=== PATIENT | male | born 1985 | race Caucasian/White ===

== ENCOUNTER 2017-01-16 21:31 | Observation (INO) | payer OTHER ==
[~2017-01-16] VITALS: Ht 177.8 cm; Wt 73.0 kg
[2017-01-16] MEDS ORDERED: SODIUM CHLORIDE 0.9% 1000ML 1,000 ML IV STA ×2 (21:49)
[2017-01-16] MEDS ORDERED: LEVETIRACETAM IV 1,000 MG in DEXTROSE 5% 100ML 100 ML IV ONE (22:00)
[2017-01-16] MEDS ORDERED: MOML PO (22:01)
[2017-01-16] MEDS ORDERED: OLAN10TA11 PO (22:01)
[2017-01-16] MEDS ORDERED: DIVA500T3 PO (22:01)
[2017-01-16] MEDS ORDERED: ACET325T96 PO (22:01)
[2017-01-16] MEDS ORDERED: ALUM-30 PO (22:01)
[2017-01-16] MEDS ORDERED: CGN1 PO (22:01)
[2017-01-16] MEDS ORDERED: MIRT15TA3 PO (22:01)
[2017-01-16] MEDS ORDERED: KPP/250 PO (22:01)
[2017-01-16] MEDS ORDERED: CLON1TAB3 PO (22:01)
[2017-01-16 22:07] LABS: URINE APPEARANCE CLEAR (CLEAR); URINE BILIRUBIN NEG (NEG); URINE COLOR YELLOW; URINE NITRITE NEG (NEG); URINE PH 7.5 (4.5-7.5); UROBILINOGEN NEG (NEG); ZZUR CULT IF INDIC CLEAN CATCH NO
[2017-01-16 22:08] LABS: MANUAL MICROSCOPIC REQUIRED? NO; REVIEW REQ? NO
[2017-01-16 22:11] LABS: BASO % 0.4 %; BASO ABS # 0.03 K/uL (0-0.2); COMPLETE YES; EOS % 0.4 %; HEMATOCRIT 40.2 % (42-52); IG% 0.1 %; LYMPH % 33.7 %; MEAN CELL VOLUME 88.5 fL (80-100); MEAN CORPUSCULAR HEMOGLOBIN 31.7 pg (25-34); MEAN CORPUSCULAR HGB CONC 35.8 g/dl (32-36); MEAN PLATELET VOLUME 12.2 fL (7.4-10.4); MONO % 10.1 %; NEUT % 55.3 %; PLATELET COUNT 238 K/uL (130-400); RED BLOOD COUNT 4.54 M/uL (4.7-6.1); WHITE BLOOD COUNT 8.31 K/uL (4.8-10.8)
[2017-01-16 22:20] LABS: PARTIAL THROMBOPLASTIN RATIO 1.1; PROTHROMBIN TIME (PATIENT) 10.4 SECONDS (9.0-12.0)
[2017-01-16 22:28] LABS: CALCIUM 8.9 mg/dl (8.5-10.1); CREATININE 0.7 mg/dl (0.60-1.40); MAGNESIUM 2.2 mg/dl (1.8-2.4); POTASSIUM 3.8 mmol/L (3.5-5.1)
[2017-01-16 22:32] LABS: BENZODIAZEPINE, URINE NEG (NEG); COCAINE,URINE NEG (NEG); PHENCYCLIDINE, URINE NEG (NEG)
[2017-01-16 22:39] LABS: PHOSPHORUS 3.6 mg/dl (2.5-4.9); THYROID STIMULATING HORMONE 2.62 uIu/ml (0.300-4.500)
[2017-01-17] VITALS (8 sets, daily range): BP systolic 93–116; BP diastolic 59–73; PULSE 59–80; TEMP 36.3–36.6; O2SAT 96–98; Ht 177.8 cm; Wt 73.0 kg
[2017-01-17] MEDS ORDERED: ACETAMINOPHEN 325 MG TAB PO PRN (01:00)
[2017-01-17] MEDS ORDERED: POLYETHYLENE (MIRALAX) 17 GM PACK PO PRN (01:00)
[2017-01-17] MEDS ORDERED: ALUMINUM/MAGNESIUM/SIMETH (MAALOX MAX) 30 ML UDC PO PRN ×2 (01:00)
[2017-01-17] MEDS ORDERED: BENZTROPINE MESYLATE 1 MG TAB PO PRN (01:00)
[2017-01-17] MEDS ORDERED: MAGNESIUM HYDROXIDE SUSP 30 ML UDC PO PRN (01:00)
[2017-01-17] MEDS ORDERED: IV FLUIDS COMPLETED PRN (01:30)
--- NOTE | 2017-01-17 01:33 | History and Physical ---
History & Physical Date & Time of Service: Jan 17, 2017 at 01:02 Chief Complaint: Seizure Primary Care Physician: [facility] History of Present Illness Source: patient, caregiver 31 y/o M w/Hx Bipolar disease with depression and psychosis, seizure disorder. He is currently committed to a psychiatric [facility] under a 302 for suicidal ideation and auditory hallucinations. He had 5 short, nearly consecutive seizures this evening and was brought into the hospital for evaluation. We had been informed by staff that he was not receiving his seizure medications which would constitute Keppra and Valproic acid, however thus far his Valproic acid level is therapeutic. As we do not know if his seizures are breakthrough or related to discontinuation of meds, he will be monitored overnight. He denies additional symptoms such as SOB, CP, N/V, fevers - he may not be a reliable historian. He did not exhibit a post-ictal state on arrival. Past Medical/Surgical History 1) Bipolar disease with depression and psychosis 2) Polysubstance abuse - methamphetamine , THC , tobacco on record - last methamphetamine use 08/20 3) Hep C - VIral load not detected 2013 4) Psychogenic polydipsia Family History DM2 Seizures Social History Smoking Status: Current Every Day Smoker Allergies Coded Allergies: Amoxicillin (Verified Allergy, Unknown, Unknown, 01/16/17) Hydrocodone (Verified Allergy, Unknown, Unknown, 01/16/17) Oxycodone (Verified Allergy, Unknown, Unknown, 01/16/17) Penicillins (Verified Allergy, Unknown, Unknown, 01/16/17) Phenytoin (Verified Allergy, Unknown, Unknown, 01/16/17) Home Medications Scheduled Clonazepam (Klonopin), 1 MG PO HS Divalproex Sodium (Depakote Er), 1,000 MG PO HS Levetiractam (Keppra), 250 MG PO BID Mirtazapine (Remeron), 15 MG PO HS Olanzapine (Zyprexa), 10 MG PO DAILY Scheduled PRN Acetaminophen Tab (Tylenol), 650 MG PO Q4H PRN for Pain Alum & Mag Hydrox-Simethicone (Mylanta), 30 ML PO QID PRN for Gastric Distress Benztropine Mesylate (Cogentin), 0.5 MG PO BID PRN for EPS Magnesium Hydroxide (Milk Of Magnesia), 30 ML PO DAILY PRN for Constipation Review of Systems Constitutional: No chills, No fever, No sweats Eyes: No eye pain, No worsening of vision ENT: No hearing loss, No nasal symptoms, No unusual epistaxis Respiratory: No cough, No sputum, No wheezing Cardiovascular: No PND, No chest pain, No orthopnea Abdomen: No nausea, No pain, No vomiting Musculoskeletal: No joint pain, No muscle pain Genitourinary - Male: No dysuria, No hematuria, No urinary frequency, No urinary urgency Neurologic: + problem reported (Seizure x 5 - witnessed - ~1 min per) Psychiatric: No depression symptoms Endocrine: No excessive thirst, No fatigue Hematologic / Lymphatic: No abnormal bleeding/bruising Integumentary: No rash Allergic / Immunologic: No environmental allergies Physical Exam Vital Signs Date Time Temp Pulse Resp B/P Pulse Ox O2 Delivery O2 Flow Rate FiO2 01/16/17 23:34 69 20 101/72 97 Room Air 01/16/17 21:59 79 01/16/17 21:43 98 Room Air 01/16/17 21:38 36.8 78 20 107/70 96 Room Air General Appearance: WD/WN, no apparent distress Head: normocephalic, atraumatic Eyes: normal inspection, PERRL, EOMI ENT: hearing grossly normal, + pertinent finding (poor dentintion) Neck: supple, no adenopathy, thyroid normal, no JVD Respiratory/Chest: chest non-tender, lungs clear, normal breath sounds Cardiovascular: regular rate, rhythm, no edema, no gallop, no JVD, no murmur, normal peripheral pulses Abdomen/GI: normal bowel sounds, non tender, soft Back: normal inspection, no CVA tenderness, no muscle spasm, normal range of motion Extremities/Musculoskelatal: normal inspection, no calf tenderness, normal capillary refill, no pedal edema, normal range of motion Neurologic/Psych: oil gauger II-XII nml as tested, no motor/sensory deficits, alert, normal mood/affect, normal reflexes, oriented x 3 Skin: warm/dry, no rash, + pertinent finding (several poorly rendered tattoos) Lymphatic: no adenopathy Diagnostics Laboratory Results Results Past 24 Hours Test 01/16/17 21:48 Range/Units White Blood Count 8.31 4.8-10.8 K/uL Red Blood Count 4.54 4.7-6.1 M/uL Hemoglobin 14.4 14.0-18.0 g/dL Hematocrit 40.2 42-52 % Mean Corpuscular Volume 88.5 80-100 fL Mean Corpuscular Hemoglobin 31.7 25-34 pg Mean Corpuscular Hemoglobin Concent 35.8 32-36 g/dl Platelet Count 238 130-400 K/uL Mean Platelet Volume 12.2 7.4-10.4 fL Neutrophils (%) (Auto) 55.3 % Lymphocytes (%) (Auto) 33.7 % Monocytes (%) (Auto) 10.1 % Eosinophils (%) (Auto) 0.4 % Basophils (%) (Auto) 0.4 % Neutrophils # (Auto) 4.60 1.4-6.5 K/uL Lymphocytes # (Auto) 2.80 1.2-3.4 K/uL Monocytes # (Auto) 0.84 0.11-0.59 K/uL Eosinophils # (Auto) 0.03 0-0.5 K/uL Basophils # (Auto) 0.03 0-0.2 K/uL RDW Standard Deviation 46.8 36.4-46.3 fL RDW Coefficient of Variation 14.4 11.5-14.5 % Immature Granulocyte % (Auto) 0.1 % Immature Granulocyte # (Auto) 0.01 0.00-0.02 K/uL Prothrombin Time 10.4 9.0-12.0 SECONDS Prothromb Time International Ratio 1.0 0.9-1.1 Activated Partial Thromboplast Time 28.7 21.0-31.0 SECONDS Partial Thromboplastin Ratio 1.1 Urine Color YELLOW Urine Appearance CLEAR CLEAR Urine pH 7.5 4.5-7.5 Urine Specific [place] 1.000 1.000-1.030 Urine Protein NEG NEG Urine Glucose (UA) NEG NEG Urine Ketones NEG NEG Urine Occult Blood NEG NEG Urine Nitrite NEG NEG Urine Bilirubin NEG NEG Urine Urobilinogen NEG NEG Urine Leukocyte Esterase NEG NEG Sodium Level 141 136-145 mmol/L Potassium Level 3.8 3.5-5.1 mmol/L Chloride Level 107 98-107 mmol/L Carbon Dioxide Level 26 21-32 mmol/L Anion Gap 8.0 3-11 mmol/L Blood Urea Nitrogen 12 7-18 mg/dl Creatinine 0.70 0.60-1.40 mg/dl Est Creatinine Clear Calc Drug Dose 143.0 ml/min Estimated GFR () 145.7 Estimated GFR (Non- 125.8 BUN/Creatinine Ratio 17.0 10-20 Random Glucose 86 70-99 mg/dl Calcium Level 8.9 8.5-10.1 mg/dl Phosphorus Level 3.6 2.5-4.9 mg/dl Magnesium Level 2.2 1.8-2.4 mg/dl Thyroid Stimulating Hormone (TSH) 2.620 0.300-4.500 uIu/ml Urine Opiates Screen NEG NEG Urine Methadone, Qualitative NEG NEG Urine Barbiturates NEG NEG Valproic Acid (Depakene) Level 91 50-100 mcg/ml Urine Phencyclidine (PCP) Level NEG NEG Ur Amphetamine/Methamphetamine NEG NEG MDMA (Ecstasy) Screen NEG NEG Urine Benzodiazepines Screen NEG NEG Urine Cocaine Metabolite NEG NEG Urine Marijuana (THC) NEG NEG Impression Assessment and Plan 31 y/o M w/Hx Bipolar disease with depression and psychosis, seizure disorder. He is currently committed to a psychiatric [facility] under a 302 for suicidal ideation and auditory hallucinations. He had 5 short, nearly consecutive seizures this evening and was brought into the hospital for evaluation. We had been informed by staff that he was not receiving his seizure medications which would constitute Keppra and Valproic acid, however thus far his Valproic acid level is therapeutic. As we do not know if his seizures are breakthrough or related to discontinuation of meds, he will be monitored overnight. He denies additional symptoms such as SOB, CP, N/V, fevers - he may not be a reliable historian. He did not exhibit a post-ictal state on arrival. 1) Seizures - we are pending a Keppra level. Valproic level is therapeutic. Pt was Keppra loaded in ER. If the Keppra level is low this can be considered diagnostic, otherwise we would consult neurology for breakthrough seizures with appropriate compliance. It is noted that he may be on new psychiatric medications which can sometimes lower the seizure threshold in addition to disturbing his sleep schedule which may also predispose him to breakthroughs. 2) Bipolar / psychosis / suicidal ideation - Pt will be placed on one to one and we will continue his meds including Zyprexa and Remeron as prescribed. 3) Hx psychogenic polydipsia - will restrict fluid if needed - electrolytes WNL presently. Full code - avoid anticoagulation due to seizures Total time for this admit including review of labs, meds, EKG - discussion with ER attending and pt/log washer - 32 min Level of Care Telemetry Resuscitation Status FULL RESUSCITATION VTE Prophylaxis VTE Risk Assessment Done? Y/N: Yes Risk Level: Low Given or contraindicated: Contraindicated
--- NOTE | 2017-01-17 01:46 | EMERGENCY ROOM VISIT NOTE ---
History First contact with patient: 21:33 Chief Complaint: SEIZURE Stated Complaint: SEIZURE Nursing Triage Summary: Vanessa from [facility]. History of seizurs. Reported by EMS to have had multiple seizures throughout the evening at [facility]. Possibly a change in medications or patient has not been taking medications for his seizures. He was given depakote at some point this evening. Patient awake and oriented. Minor headache. Last seizure before today was 1 year ago. History of Present Illness The patient is a 31 year old male who presents to the Emergency Room with complaints of seizures today who is currently at the [facility] for suicidal ideations and hallucinations under a 302 who is from [place]. Patient states he normally takes Keppra 1000 mg twice a day and Depakote 1000 mg daily at bedtime. Patient states he has not been receiving his antibiotic medication since his been at the [facility]. He has been there for 2 days. He was sent there under a 302 for suicidal ideations. Patient denies alcohol use, drug use , chest pain, dyspnea, fever, chills, recent illness, Don pain, headache or any other medical complaints. Patient states he had 5 or 6 seizures today. Pony did give him a total of 500 Depakote tonight. I did speak to the nurse at the [facility] and states that there were no orders by the doctor to give the Depakote or Keppra so he did not receive anything for the past 2-3 days. The nurse states that he had 4 seizures in front of her that were brief in nature that was with generalized shaking and patient was post ictal and then 2 longer seizures. He was then sent here. Review of Systems See HPI for pertinent positives & negatives. A total of 10 systems reviewed and were otherwise negative. Past Medical/Surgical History Medical Problems: (1) Seizures Social History Smoking Status: Current Every Day Smoker Alcohol Use: none Drug Use: none Current/Historical Medications Scheduled Clonazepam (Klonopin), 1 MG PO HS Divalproex Sodium (Depakote Er), 1,000 MG PO HS Levetiractam (Keppra), 250 MG PO BID Mirtazapine (Remeron), 15 MG PO HS Olanzapine (Zyprexa), 10 MG PO DAILY Scheduled PRN Acetaminophen Tab (Tylenol), 650 MG PO Q4H PRN for Pain Alum & Mag Hydrox-Simethicone (Mylanta), 30 ML PO QID PRN for Gastric Distress Benztropine Mesylate (Cogentin), 0.5 MG PO BID PRN for EPS Magnesium Hydroxide (Milk Of Magnesia), 30 ML PO DAILY PRN for Constipation Allergies Coded Allergies: Amoxicillin (Verified Allergy, Unknown, Unknown, 01/16/17) Hydrocodone (Verified Allergy, Unknown, Unknown, 01/16/17) Oxycodone (Verified Allergy, Unknown, Unknown, 01/16/17) Penicillins (Verified Allergy, Unknown, Unknown, 01/16/17) Phenytoin (Verified Allergy, Unknown, Unknown, 01/16/17) Physical Exam Vital Signs Date Time Temp Pulse Resp B/P Pulse Ox O2 Delivery O2 Flow Rate FiO2 01/17/17 01:24 73 20 115/67 95 01/16/17 23:34 69 20 101/72 97 Room Air 01/16/17 21:59 79 01/16/17 21:43 98 Room Air 01/16/17 21:38 36.8 78 20 107/70 96 Room Air Pain Rating (0-10): 0 Physical Exam VITALS: Vitals are noted on the nurse's note and reviewed by myself. Vital signs stable. GENERAL: Pleasant male, in no acute distress, nondiaphoretic, well-developed well-nourished. SKIN: The skin was without rashes, erythema, edema, or bruising. There is no tenting of the skin. Capillary reflex less than 2 seconds. HEAD: Normocephalic atraumatic. EARS: External auditory canals clear, tympanic membranes pearly alvarez without erythema or effusion bilaterally. EYES: Pupils equal round and reactive to light and accommodation. Conjunctivae without injection, sclerae without icterus. Extraocular movements intact. NOSE: Patent, turbinates without inflammation or discharge. No sinus tenderness. MOUTH: Mucous membranes moist. Pharynx without erythema or exudate. Uvula midline. Airway patent. Tongue does not deviate. NECK: Supple without nuchal rigidity. No lymphadenopathy. No thyromegaly. Cervical spine is nontender. No JVD. HEART: Regular rate and rhythm without murmurs gallops or rubs. LUNGS: Clear to auscultation bilaterally without wheezes, rales or rhonchi. No dullness to percussion. No retractions or accessory muscle use. ABDOMEN: Positive bowel sounds x 4. Normal tympanic percussion. Soft, nontender, without masses or organomegaly. Mullins sign negative. No guarding or rebound tenderness. MUSCULOSKELETAL: No muscle atrophy, erythema, or edema noted. NEURO: Patient was alert and oriented to person place and time. Normal sensation to light and sharp touch. No focal neurological deficits. Cranial nerves II through XII grossly intact. No pronator drift. Cerebellar exam intact. Medical Decision & Procedures Laboratory Results 01/16/17 21:48 Red Blood Count 4.54, Mean Corpuscular Volume 88.5, Mean Corpuscular Hemoglobin 31.7, Mean Corpuscular Hemoglobin Concent 35.8, Mean Platelet Volume 12.2, Neutrophils (%) (Auto) 55.3, Lymphocytes (%) (Auto) 33.7, Monocytes (%) (Auto) 10.1, Eosinophils (%) (Auto) 0.4, Basophils (%) (Auto) 0.4, Neutrophils # (Auto ) 4.60, Lymphocytes # (Auto) 2.80, Monocytes # (Auto) 0.84, Eosinophils # (Auto ) 0.03, Basophils # (Auto) 0.03 01/16/17 21:48 Test 01/16/17 21:48 White Blood Count 8.31 K/uL (4.8-10.8) Red Blood Count 4.54 M/uL (4.7-6.1) Hemoglobin 14.4 g/dL (14.0-18.0) Hematocrit 40.2 % (42-52) Mean Corpuscular Volume 88.5 fL (80-100) Mean Corpuscular Hemoglobin 31.7 pg (25-34) Mean Corpuscular Hemoglobin Concent 35.8 g/dl (32-36) Platelet Count 238 K/uL (130-400) Mean Platelet Volume 12.2 fL (7.4-10.4) Neutrophils (%) (Auto) 55.3 % Lymphocytes (%) (Auto) 33.7 % Monocytes (%) (Auto) 10.1 % Eosinophils (%) (Auto) 0.4 % Basophils (%) (Auto) 0.4 % Neutrophils # (Auto) 4.60 K/uL (1.4-6.5) Lymphocytes # (Auto) 2.80 K/uL (1.2-3.4) Monocytes # (Auto) 0.84 K/uL (0.11-0.59) Eosinophils # (Auto) 0.03 K/uL (0-0.5) Basophils # (Auto) 0.03 K/uL (0-0.2) RDW Standard Deviation 46.8 fL (36.4-46.3) RDW Coefficient of Variation 14.4 % (11.5-14.5) Immature Granulocyte % (Auto) 0.1 % Immature Granulocyte # (Auto) 0.01 K/uL (0.00-0.02) Prothrombin Time 10.4 SECONDS (9.0-12.0) Prothromb Time International Ratio 1.0 (0.9-1.1) Activated Partial Thromboplast Time 28.7 SECONDS (21.0-31.0) Partial Thromboplastin Ratio 1.1 Urine Color YELLOW Urine Appearance CLEAR (CLEAR) Urine pH 7.5 (4.5-7.5) Urine Specific [place] 1.000 (1.000-1.030) Urine Protein NEG (NEG) Urine Glucose (UA) NEG (NEG) Urine Ketones NEG (NEG) Urine Occult Blood NEG (NEG) Urine Nitrite NEG (NEG) Urine Bilirubin NEG (NEG) Urine Urobilinogen NEG (NEG) Urine Leukocyte Esterase NEG (NEG) Anion Gap 8.0 mmol/L (3-11) Est Creatinine Clear Calc Drug Dose 143.0 ml/min Estimated GFR () 145.7 Estimated GFR (Non- 125.8 BUN/Creatinine Ratio 17.0 (10-20) Calcium Level 8.9 mg/dl (8.5-10.1) Phosphorus Level 3.6 mg/dl (2.5-4.9) Magnesium Level 2.2 mg/dl (1.8-2.4) Thyroid Stimulating Hormone (TSH) 2.620 uIu/ml (0.300-4.500) Urine Opiates Screen NEG (NEG) Urine Methadone, Qualitative NEG (NEG) Urine Barbiturates NEG (NEG) Valproic Acid (Depakene) Level 91 mcg/ml (50-100) Urine Phencyclidine (PCP) Level NEG (NEG) Ur Amphetamine/Methamphetamine NEG (NEG) MDMA (Ecstasy) Screen NEG (NEG) Urine Benzodiazepines Screen NEG (NEG) Urine Cocaine Metabolite NEG (NEG) Urine Marijuana (THC) NEG (NEG) Medications Administered Medications (Trade) Dose Ordered Sig/Santa Route Start Time Stop Time Status Last Admin Dose Admin Levetiracetam 1000 mg/Dextrose 110 ml @ 440 mls/hr ONE ONCE IV 01/16/17 22:00 01/16/17 22:14 DC 01/16/17 22:30 440 MLS/HR Sodium Chloride 1,000 ml @ 999 mls/hr Q1H1M STAT IV 01/16/17 21:49 01/16/17 22:49 DC 01/16/17 21:49 999 MLS/HR Sodium Chloride (Nss 1000ml) 1,000 ml @ 125 mls/hr Q8H STAT IV 01/16/17 21:49 01/17/17 05:48 01/16/17 23:51 125 MLS/HR ED Course Prior records/ancillary studies reviewed. Patient placed in seizure precautions immediately upon arrival. Nursing notes reviewed. Additional history obtained from EMS The patient's history was concerning for a possible seizure. Differential diagnosis: Etiologies such as infection, hypoglycemia, electrolyte abnormalities, cardiac sources, intracerebral event, trauma, toxicologic, neurologic, as well as others were entertained. Physical examination: As above. No signs of trauma. ER treatment provided: Keppra On reassessment the patient felt better. Diagnostics interpretation by me: ECG: Normal sinus, normal intervals, no acute ST or T wave changes. Impression normal sinus rhythm interpreted by myself The labs revealed no worrisome leukocytosis or electrolyte abnormality. Normal Depakote level Consultation: A consultation was placed with the neurologist, Dr. Mcpherson. The case was discussed and diagnostics were reviewed. She recommends Keppra IV and admission. She states since the Depakote level is within limits she does not recommend giving anymore at this time but does recommend resuming his normal regimen. I spoke to the hospitalist, Dr. Russo and will evaluate the patient for possible admission. Please see his dictation for further information regarding the treatment plan. The patient has a history of seizures and experienced another episode. Patient most likely experienced a seizure due to lack of being medicated. He has had possibly 5-6 seizures today and will be evaluated by medicine for possible admission. No concerning physical findings or historical points were noted. Advanced diagnostics were deemed unnecessary. By the evaluation outlined above emergent etiologies such as infection, hypoglycemia, electrolyte abnormalities, cardiac sources, intracerebral event, toxicologic, neurologic,as well as others were deemed relatively unlikely. The patient was counseled not to drive until cleared in follow-up and seizure precautions given. I gave my usual and customary discussion regarding these issues. The pt informed about the findings as listed above. All questions were answered and pleased with the treatment. Case reviewed with my attending Medical Decision As above Impression Primary Impression: Seizures Departure Information Dispostion Being Evaluated By Hospitalist Condition FAIR Referrals [facility] (PCP) Patient Instructions My [facility]
[2017-01-17] MEDS ORDERED: D5NSS + 20MEQ KCL 1,000 ML IV SCH (02:30)
[2017-01-17] MEDS ORDERED: OLANZAPINE 10 MG TAB PO SCH (09:00)
[2017-01-17] MEDS ORDERED: LEVETIRACETAM 250 MG TAB PO SCH (09:00)
--- NOTE | 2017-01-17 12:21 | Hospitalist Progress Note ---
Hospitalist Progress Note Date of Service Jan 17, 2017. Subjective Pt evaluation today including: conversation w/ patient, conversation w/ family , physical exam, chart review, lab review, conversation w/ sap portal consultant, review of inpatient medication list Patient currently has no complaints. Denies any headache. Denies any recent illnesses such as fever, sore throat, cough, nausea or vomiting. He is currently on a 302 from the [facility]. He reports not feeling safe going back to the [facility] as he experienced 6 seizures before they called EMS. He also says that he is not getting his typical dose of Keppra and Depakote. Additional Comments: 6 system review negative. Please see pertinent positives in the history of present illness section. Objective Vital Signs Date Time Temp Pulse Resp B/P Pulse Ox O2 Delivery O2 Flow Rate FiO2 01/17/17 11:40 Room Air 01/17/17 11:01 36.5 64 16 93/59 97 Room Air 01/17/17 07:45 Room Air 01/17/17 07:03 36.3 61 18 97/60 96 Room Air 01/17/17 04:00 98 Room Air 01/17/17 04:00 36.4 59 18 96/59 96 Room Air 01/17/17 02:42 36.6 80 18 116/73 98 Room Air 01/17/17 01:45 36.6 80 18 116/73 98 01/17/17 01:24 73 20 115/67 95 01/16/17 23:34 69 20 101/72 97 Room Air 01/16/17 21:59 79 01/16/17 21:43 98 Room Air 01/16/17 21:38 36.8 78 20 107/70 96 Room Air Physical Exam General Appearance: no apparent distress Eyes: EOMI, + pertinent finding (pupils dilated) Neck: no JVD Respiratory/Chest: lungs clear Cardiovascular: regular rate, rhythm Abdomen: normal bowel sounds, non tender, soft Extremities: non-tender, no pedal edema Neurologic/Psychiatric: no motor/sensory deficits, oriented x 3, + pertinent finding (species occasionally slurred) Skin: warm/dry Laboratory Results Last 24 Hours Test 01/16/17 21:48 White Blood Count 8.31 K/uL Red Blood Count 4.54 M/uL Hemoglobin 14.4 g/dL Hematocrit 40.2 % Mean Corpuscular Volume 88.5 fL Mean Corpuscular Hemoglobin 31.7 pg Mean Corpuscular Hemoglobin Concent 35.8 g/dl Platelet Count 238 K/uL Mean Platelet Volume 12.2 fL Neutrophils (%) (Auto) 55.3 % Lymphocytes (%) (Auto) 33.7 % Monocytes (%) (Auto) 10.1 % Eosinophils (%) (Auto) 0.4 % Basophils (%) (Auto) 0.4 % Neutrophils # (Auto) 4.60 K/uL Lymphocytes # (Auto) 2.80 K/uL Monocytes # (Auto) 0.84 K/uL Eosinophils # (Auto) 0.03 K/uL Basophils # (Auto) 0.03 K/uL RDW Standard Deviation 46.8 fL RDW Coefficient of Variation 14.4 % Immature Granulocyte % (Auto) 0.1 % Immature Granulocyte # (Auto) 0.01 K/uL Prothrombin Time 10.4 SECONDS Prothromb Time International Ratio 1.0 Activated Partial Thromboplast Time 28.7 SECONDS Partial Thromboplastin Ratio 1.1 Urine Color YELLOW Urine Appearance CLEAR Urine pH 7.5 Urine Specific [place] 1.000 Urine Protein NEG Urine Glucose (UA) NEG Urine Ketones NEG Urine Occult Blood NEG Urine Nitrite NEG Urine Bilirubin NEG Urine Urobilinogen NEG Urine Leukocyte Esterase NEG Sodium Level 141 mmol/L Potassium Level 3.8 mmol/L Chloride Level 107 mmol/L Carbon Dioxide Level 26 mmol/L Anion Gap 8.0 mmol/L Blood Urea Nitrogen 12 mg/dl Creatinine 0.70 mg/dl Est Creatinine Clear Calc Drug Dose 143.0 ml/min Estimated GFR () 145.7 Estimated GFR (Non- 125.8 BUN/Creatinine Ratio 17.0 Random Glucose 86 mg/dl Calcium Level 8.9 mg/dl Phosphorus Level 3.6 mg/dl Magnesium Level 2.2 mg/dl Thyroid Stimulating Hormone (TSH) 2.620 uIu/ml Urine Opiates Screen NEG Urine Methadone, Qualitative NEG Urine Barbiturates NEG Valproic Acid (Depakene) Level 91 mcg/ml Urine Phencyclidine (PCP) Level NEG Ur Amphetamine/Methamphetamine NEG MDMA (Ecstasy) Screen NEG Urine Benzodiazepines Screen NEG Urine Cocaine Metabolite NEG Urine Marijuana (THC) NEG Assessment and Plan 31-year-old male with a history of suicidal ideation presents from the [facility] on a 302 for breakthrough seizures. No further seizure activity since admission Breakthrough seizure-Depakote level therapeutic -We will try to confirm the patient's dose of Keppra and Depakote. At home, he reports taking Depakote ER 1000 mg twice daily and Keppra 1000 g twice daily -According to [facility] records, the patient is getting Depakote ER 1000 mg at night and Keppra 250 mg BID -If I'm unable to confirm his home dose, we will increase Keppra to 500 mg BID per recommendations of neurology Bipolar disorder -Continue Remeron 15 mg at night, Zyprexa 10 mg daily, Congentin 0.5 mg BID prn Polydipsia -Electrolytes stable DVT prophylaxis -Lovenox 40 mg subQ daily -TEDS, SCDs CODE STATUS -LEVEL I FULL CODE DISPO -Likely DC back to [facility] on 302
--- NOTE | 2017-01-17 13:12 | Psychiatric Consultation ---
Consultation Identifying Data 31 y/o male from [place] who has a history of bipolar disorder and is admitted to the [facility] on an involuntary 302 commitment with SI and command AH. He was transferred to [facility] for treatment of seizures. Psychiatry was consulted for "SI, 302 from the [facility]." Chief Complaint "I'm depressed, miss my family". History of Present Illness Information is obtained from the patient and a review of his [facility] records as well as records from the [facility]. According to the paper records on his chart, he presented to an outside hospital emergency room on 01/15/2017 endorsing command auditory hallucinations telling him to kill himself and suicidal thoughts with a planned overdose on his medications. He reported a history of bipolar disorder, and stated that he was hearing voices telling him "no one cares about you, you might as well , go kill yourself." He then demanded to leave the emergency room, became agitated, and threatened staff, so was placed on a 302 involuntary commitment. He received Haldol 10 mg and Ativan 2 mg IM in the emergency room. He was transferred to the [facility]. There is some discrepancies in his medication list, as the outside hospital emergency room lists Keppra 1000 mg twice a day, but the [facility] lists Keppra 250 mg twice a day. The rest of his medication list appears the same, including Depakote 1000 mg daily at bedtime, olanzapine 10 mg daily, and mirtazapine 15 mg daily at bedtime. He appears to have been taking his medications at the [facility]. On my assessment, he states that he doesn't want to return to the [facility] because "it is too far away from home," and also complains that he doesn't think he needed to be admitted there in the first place. He is upset that he was involuntarily committed, saying that he signed himself in, but then was committed. He continues to endorse suicidal thoughts, but denies intent to harm himself in the hospital. Although he states that he doesn't want to return to the [facility], he was informed that he is on an involuntary commitment, so we'll need to return there and complete his treatment once he is medically stabilized. He expressed understanding. Past Psychiatric History Current OP Treatment: psychiatrist ([facility] in [place]) Prior Psych Hospitalizations: other (in 2003) (1) Bipolar disorder Admitted to the [facility] on a 302 commitment as of 01/15/17. History of suicide attempt by hanging in 2002 or 2003. History of inpatient treatment in 2003. Previous medication trials include but are not limited to risperidone, lorazepam , trazodone, and quetiapine. Per outside hospital records, diagnosis is bipolar disorder, but patient states he is also diagnosed with depression, psychosis, and schizoaffective disorder. Past Medical/Surgical History Problem List: (1) Seizures Allergies Allergies: Coded Allergies: Amoxicillin (Verified Allergy, Unknown, Unknown, 01/16/17) Hydrocodone (Verified Allergy, Unknown, Unknown, 01/16/17) Oxycodone (Verified Allergy, Unknown, Unknown, 01/16/17) Penicillins (Verified Allergy, Unknown, Unknown, 01/16/17) Phenytoin (Verified Allergy, Unknown, Unknown, 01/16/17) Home Medications Scheduled Clonazepam (Klonopin), 1 MG PO HS Divalproex Sodium (Depakote Er), 1,000 MG PO HS Levetiractam (Keppra), 250 MG PO BID Mirtazapine (Remeron), 15 MG PO HS Olanzapine (Zyprexa), 10 MG PO DAILY Scheduled PRN Acetaminophen Tab (Tylenol), 650 MG PO Q4H PRN for Pain Alum & Mag Hydrox-Simethicone (Mylanta), 30 ML PO QID PRN for Gastric Distress Benztropine Mesylate (Cogentin), 0.5 MG PO BID PRN for EPS Magnesium Hydroxide (Milk Of Magnesia), 30 ML PO DAILY PRN for Constipation Family History Mother with anxiety. Alcohol Use Alcohol Use In Past 12 Months: No Substance History meth - last use 08/2013 THC - daily Personal History Additional Comments: Patient is from [place], and his mother, sister, and extended family live in [place]. He moved to [place] to the [facility] to live with his father and get clean. He is unemployed on disability. He has a 12th grade education. He is in the process of . He has multiple arrests in the past, including for grand theft auto, and is on probation in [place] for domestic violence charges. Review of Systems 10 systems were reviewed and are negative except as stated above. Examination Vital Signs Vital Signs Past 12 Hours Date Time Temp Pulse Resp B/P Pulse Ox O2 Delivery O2 Flow Rate FiO2 01/17/17 11:40 Room Air 01/17/17 11:01 36.5 64 16 93/59 97 Room Air 01/17/17 07:45 Room Air 01/17/17 07:03 36.3 61 18 97/60 96 Room Air 01/17/17 04:00 98 Room Air 01/17/17 04:00 36.4 59 18 96/59 96 Room Air 01/17/17 02:42 36.6 80 18 116/73 98 Room Air 01/17/17 01:45 36.6 80 18 116/73 98 01/17/17 01:24 73 20 115/67 95 Laboratory Results Last 24 Hours Test 01/16/17 21:48 White Blood Count 8.31 K/uL Red Blood Count 4.54 M/uL Hemoglobin 14.4 g/dL Hematocrit 40.2 % Mean Corpuscular Volume 88.5 fL Mean Corpuscular Hemoglobin 31.7 pg Mean Corpuscular Hemoglobin Concent 35.8 g/dl Platelet Count 238 K/uL Mean Platelet Volume 12.2 fL Neutrophils (%) (Auto) 55.3 % Lymphocytes (%) (Auto) 33.7 % Monocytes (%) (Auto) 10.1 % Eosinophils (%) (Auto) 0.4 % Basophils (%) (Auto) 0.4 % Neutrophils # (Auto) 4.60 K/uL Lymphocytes # (Auto) 2.80 K/uL Monocytes # (Auto) 0.84 K/uL Eosinophils # (Auto) 0.03 K/uL Basophils # (Auto) 0.03 K/uL RDW Standard Deviation 46.8 fL RDW Coefficient of Variation 14.4 % Immature Granulocyte % (Auto) 0.1 % Immature Granulocyte # (Auto) 0.01 K/uL Prothrombin Time 10.4 SECONDS Prothromb Time International Ratio 1.0 Activated Partial Thromboplast Time 28.7 SECONDS Partial Thromboplastin Ratio 1.1 Urine Color YELLOW Urine Appearance CLEAR Urine pH 7.5 Urine Specific [place] 1.000 Urine Protein NEG Urine Glucose (UA) NEG Urine Ketones NEG Urine Occult Blood NEG Urine Nitrite NEG Urine Bilirubin NEG Urine Urobilinogen NEG Urine Leukocyte Esterase NEG Sodium Level 141 mmol/L Potassium Level 3.8 mmol/L Chloride Level 107 mmol/L Carbon Dioxide Level 26 mmol/L Anion Gap 8.0 mmol/L Blood Urea Nitrogen 12 mg/dl Creatinine 0.70 mg/dl Est Creatinine Clear Calc Drug Dose 143.0 ml/min Estimated GFR () 145.7 Estimated GFR (Non- 125.8 BUN/Creatinine Ratio 17.0 Random Glucose 86 mg/dl Calcium Level 8.9 mg/dl Phosphorus Level 3.6 mg/dl Magnesium Level 2.2 mg/dl Thyroid Stimulating Hormone (TSH) 2.620 uIu/ml Urine Opiates Screen NEG Urine Methadone, Qualitative NEG Urine Barbiturates NEG Valproic Acid (Depakene) Level 91 mcg/ml Urine Phencyclidine (PCP) Level NEG Ur Amphetamine/Methamphetamine NEG MDMA (Ecstasy) Screen NEG Urine Benzodiazepines Screen NEG Urine Cocaine Metabolite NEG Urine Marijuana (THC) NEG Mental Examination During interview pt is: alert and oriented, cooperative Appearance: other (wearing a hospital gown. Multiple large tattoos on bilateral upper extremities. Poor dentition) Eye contact is: fair Motor behavior is: no abnormal motor movements Speech: normal in rate, rhythm & volume Affect: blunted Mood is: other ("okay, I don't want to go back there") Thought process: goal directed Thought content: reality based without delusions Suicidal thought are: denied ("yeah I said I was depressed, but they misunderstood") Homicidal thoughts are: denied Hallucinations: denies auditory Intelligence estimated to be: consistent with level of education Insight: impaired Judgement: impaired Impression / Recommendations Impression 31-year-old white male currently living in [place] after relocating from [place], with history of bipolar disorder per his report as well as substance abuse and legal problems, who presents from the [facility] for treatment of seizures after being committed there involuntarily for command auditory hallucinations and suicidality. Recommendations (1) Bipolar disorder -Continue olanzapine 10 mg daily and mirtazapine 15 mg daily at bedtime. -Is on a 302 involuntary commitment to the [facility], and will need to return there once medically stabilized. -Reviewed the case with ALTAGRACIA Amaya, and recommend that case management coordinate with the [facility] regarding patient's probable medical clearance and transfer back to their facility. She is attempting to contact his PCP to clarify correct doses of seizure medications.
[2017-01-17] MEDS ORDERED: NICOTINE 21 MG/24 HR TDSY TD SCH (15:30)
--- NOTE | 2017-01-17 16:58 | DIAGNOSTIC IMAGING REPORT ---
CT OF THE HEAD WITHOUT CONTRAST CLINICAL HISTORY: Evaluate for intracranial pathology. COMPARISON STUDY: No previous studies for comparison. CT DOSE: 537.48 mGy.cm TECHNIQUE: Helical axial images of the head were obtained without IV contrast. Automated exposure control was utilized for the study. FINDINGS: No acute intracranial hemorrhage, midline shift or mass effect is present. Ventricular system is normal. Basilar cisterns are patent. There are no extra axial collections. Jaun-white differentiation is maintained. There are no findings to suggest acute dural sinus thrombosis or acute territorial infarct. There are no calvarial abnormalities. Visualized portions of the sinuses and mastoid air cells are clear. IMPRESSION: No acute intracranial findings. Electronically signed by: Víctor Cooper M.D. 01/17/2017 4:56 PM Dictated Date/Time: 01/17/2017 4:55 PM
[2017-01-17] MEDS ORDERED: NCDT21 TD (17:05)
[2017-01-17] MEDS ORDERED: CLON1TAB3 PO (17:05)
[2017-01-17] MEDS ORDERED: LEVE500T PO (17:05)
--- NOTE | 2017-01-17 17:09 | Discharge Instructions ---
Discharge Instructions Date of Service Jan 17, 2017. Admission Reason for Admission: Seizures Discharge Discharge Diagnosis / Problem: seizure disorder Discharge Goals Goal(s): Learn about illness, Diagnostic testing, Therapeutic intervention Activity Recommendations Activity Limitations: resume your previous activity . Instructions / Follow-Up Instructions / Follow-Up From Dr. Mejía - Following admission you had no further seizures. All of your blood tests including your depakote level were normal. A keppra blood level was sent and is pending at time of discharge. CAT scan of the brain was also normal. We confirmed your doses of your seizure medications with your pharmacy back home in [place], [place]. You will continue on depakote 1000mg at bedtime and keppra 500mg twice daily. No dose adjustments/increases are recommended at this time. We suspect you had seizures because of sleep deprivation (no sleep in 4 days) as well as either getting lower doses of your keppra and/or missing 1 or more doses of your keppra. You will need follow-up with your neurologist back home in [place] upon return there. Current Hospital Diet Patient's current hospital diet: Regular Diet Discharge Diet Recommended Diet: Regular Diet Procedures Procedures Performed: CAT scan of the brain - NORMAL. All blood work was also normal including your depakote level. Pending Studies Studies pending at discharge: yes List of pending studies: Keppra blood level Medical Emergencies . Who to Call and When: Medical Emergencies: If at any time you feel your situation is an emergency, please call 911 immediately. . Non-Emergent Contact Non-Emergency issues call your: Specialist (psychiatrist) Call Non-Emergent contact if: temperature is above 100.5, you have any medication questions . . "Provider Documentation" section prepared by Ismael Mejía. VTE Core Measure Inpt VTE Proph given/why not?: SCD's, Contraindicated
--- NOTE | 2017-01-17 19:38 | Discharge Summary ---
Discharge Summary Date of Service Jan 17, 2017. Discharge Summary Admission Date: Jan 17, 2017 at 00:53 Discharge Date: Jan 17, 2017 Discharge Disposition: Acute care [facility] ([place]) Principal Diagnosis: seizures in setting of established seizure disorder Problems/Secondary Diagnoses: 1. bipolar disorder 2. history of schizoaffective disorder 3. prior history of suicide attempt 4. h/o psychogenic polydipsia 5. h/o polysubstance abuse 6. tobacco dependence Procedures: CT brain: normal. No stroke, mass, ICH. Consultations: psychiatry - Summer Grey MD Medication Reconciliation New Medications: Nicotine (Nicotine) 1 Patch Tdsy 1 PATCH TD QAM, #30 0 Refills 21mg patch; discontinue if smoking tobacco products. Changed Medications: Levetiractam (Levetiracetam) 500 Mg Tab 500 MG PO BID, #60 1 Refill (Changed from: Levetiractam (Keppra) 250 Mg Tab 250 Mg PO BID) Continued Medications: Acetaminophen Tab (Tylenol) 325 Mg Tab 650 MG PO Q4H PRN for Pain, TAB Alum & Mag Hydrox-Simethicone (Mylanta) 1 Nitza Nitza 30 ML PO QID PRN for Gastric Distress Benztropine Mesylate (Cogentin) 1 Mg Tab 0.5 MG PO BID PRN for EPS, TAB Clonazepam (Klonopin) 1 Mg Tab 1 MG PO HS, #14 TAB 0 Refills (This prescription has been renewed) Divalproex Sodium (Depakote Er) 500 Mg Tab 1000 MG PO HS, TAB Magnesium Hydroxide (Milk Of Magnesia) 30 Ml Susp 30 ML PO DAILY PRN for Constipation, ML Mirtazapine (Remeron) 15 Mg Tab 15 MG PO HS, TAB Olanzapine (Zyprexa) 10 Mg Tab 10 MG PO DAILY, TAB Discharge Exam Physical Exam: General Appearance: no apparent distress ENT: pharynx normal, + pertinent finding (poor dentition ) Neck: no JVD Respiratory/Chest: lungs clear, no respiratory distress, no accessory muscle use Cardiovascular: regular rate, rhythm, no gallop, no murmur, normal peripheral pulses Abdomen / GI: normal bowel sounds, non tender, soft, no organomegaly Extremities: no pedal edema Neurologic/Psychiatric: no motor/sensory deficits, alert, normal reflexes, oriented x 3, + pertinent finding (mild agitation ) Skin: no rash, + pertinent finding (tattoos) Hospital Course HISTORY OF PRESENT ILLNESS: 31 y/o M w/Hx Bipolar disease with depression and psychosis, seizure disorder. He is currently committed to a psychiatric [facility] under a 302 for suicidal ideation and auditory hallucinations. He had 5 short, nearly consecutive generalized seizures this evening and was brought into the hospital for evaluation. We had been informed by staff that he was not receiving his seizure medications which would constitute Keppra and Valproic acid, however thus far his Valproic acid level is therapeutic. He denies additional symptoms such as SOB, CP, N/V, fevers. He did not exhibit a post-ictal state on arrival. He admitted to not having any sleep for nearly 4 days. HOSPITAL COURSE: Following admission he did not have any additional seizures. He was loaded with IV keppra in the emergency department and continued on his oral keppra and depakote. CT head was negative for any pathology and all labs including electrolytes were normal. TSH was normal as well. His pharmacy in [place], [place] was contacted to confirm the correct doses of his seizures meds. His depakote was 1000mg at bedtime and his keppra was 500mg twice daily. It was thought that his breakthrough seizures was likely precipitated by sleep deprivation. Other possibilities included: receiving lower doses of his keppra and/or not receiving his keppra over the last few days. Keppra level was sent and is pending at time of discharge. Neurology was consulted by phone and no medication adjustments were recommended in light of the possibility that he either missed doses of the keppra or was receiving lower amounts of such. He should follow-up with his personal neurologist upon return to [place], [place]. Due to his 302 petition he will return to the [facility] at discharge. The patient was counseled at discharge on the importance of good sleep hygiene and the link between sleep deprivation and lowering of the seizure threshold. Total Time Spent: Greater than 30 minutes This includes examination of the patient, discharge planning, medication reconciliation, and communication with other providers. Discharge Instructions Please refer to the electronic Patient Visit Report (Discharge Instructions) for additional information. Follow-Up to be determined once discharged from the [facility] Additional Copies To [facility]
[2017-01-17] MEDS ORDERED: CLONAZEPAM 1 MG TAB PO SCH (21:00)
[2017-01-17] MEDS ORDERED: LEVETIRACETAM 500 MG TAB PO SCH ×2 (21:00)
[2017-01-17] MEDS ORDERED: MIRTAZAPINE TAB 15 MG TAB PO SCH (21:00)
[2017-01-17] MEDS ORDERED: DIVALPROEX 500 MG EXTENDED RELEASE TAB PO SCH (21:00)
[2017-01-18] MEDS ORDERED: NICOTINE 21 MG/24 HR TDSY TD SCH (09:00)
== END 2017-01-17 18:35 ==
LOC: ENRESERVTM → ENRESERVDT → C.EDB 21:33 → C.MED 01-17 00:53
PROVIDERS: ADMIT Internal Medicine; ATTEND Internal Medicine
DX: G40.909 Epilepsy, unspecified, not intractable, without status epilepticus (principal); R63.1 Polydipsia; F31.5 Bipolar disorder, current episode depressed, severe, with psychotic features; F25.9 Schizoaffective disorder, unspecified; Z91.5 Personal history of self-harm; F17.200 Nicotine dependence, unspecified, uncomplicated; Z88.0 Allergy status to penicillin; Z88.2 Allergy status to sulfonamides; Z83.3 Family history of diabetes mellitus; Z82.0 Family history of epilepsy and other diseases of the nervous system